=== PATIENT | male | born 1970 | race Hispanic/Latino ===

== ENCOUNTER 2021-03-15 11:34 | Outpatient (CLI) | payer OTHER ==
--- NOTE | 2021-03-15 16:08 | Vascular Lab Report ---
DUPLEX DOPPLER LOWER EXTREMITY VEINS, RIGHT INDICATION / CLINICAL INFORMATION: Right lower extremity edema. TECHNIQUE: Duplex doppler imaging was performed through the veins of the right lower extremity using venous compression and other maneuvers. COMPARISON: None available. FINDINGS: RIGHT COMMON FEMORAL VEIN: Negative. RIGHT FEMORAL VEIN: Negative. RIGHT POPLITEAL VEIN: Negative. RIGHT CALF VEINS: Negative. ADDITIONAL FINDINGS: Along the right popliteal fossa is a complex hypoechoic structure measuring 2.8 x 1.3 cm that could represent a complicated Deutsch cyst. IMPRESSION: 1. No sonographic evidence for DVT in the right lower extremity. 2. Possible complicated Deutsch cyst as above. Close clinical follow-up is recommended. Scribed by: Myrna Pandya RDMS, RVT Scribed: 03/15/2021 12:57 PM I have reviewed the images, agree with this report, and edited this report as needed. Signer Name: Pepe Devlin MD Signed: 03/15/2021 4:03 PM Workstation Name: [id number]
== END 2021-03-15 11:35 | disposition home or self-care (01) ==
LOC: VAS 11:34
PROVIDERS: ATTEND Internal Medicine
DX: R60.0 Localized edema (principal)